=== PATIENT | male | born 2000 | race Caucasian/White ===

== ENCOUNTER 2020-05-02 08:09 | Emergency (ER) | payer MEDICAID ==
[~2020-05-02] VITALS: Ht 182.9 cm; Wt 96.2 kg
[~2020-05-02 08:09] MED LIST: NO MEDS
[2020-05-02 08:13] VITALS: BP 133/88
--- NOTE | 2020-05-02 08:15 | NUR ---
PT AMBULATED TO ER BED 12
--- NOTE | 2020-05-02 08:48 | NUR ---
PT SEEN AND EXAMINED BY XUAN SCHWARZ, NO NURSING INTERVENTIONS ORDERED AT THIS TIME
[2020-05-02 08:56] VITALS: BP 133/88
--- NOTE | 2020-05-02 08:56 | NUR ---
Patient discharged with v/s stable. Written and verbal after care instructions given and explained. Patient alert, oriented and verbalized understanding of instructions. Ambulatory with steady gait. All questions addressed prior to discharge. ID band removed. Patient advised to follow up with PMD. Rx of PREDNISONE, BENADRYL given. Patient educated on indication of medication including possible reaction and side effects. Opportunity to ask questions provided and answered.
== END 2020-05-02 08:56 | disposition home or self-care (01) ==
LOC: MED 08:09
DX: L23.9 Allergic contact dermatitis, unspecified cause (principal)
CPT/HCPCS: 99283